=== PATIENT | female | born 1980 | race Caucasian/White ===

== ENCOUNTER 2017-08-20 21:40 | Emergency (ER) | payer OTHER, MEDICAID ==
[~2017-08-20] VITALS: Ht 170.2 cm; Wt 81.7 kg
[~2017-08-20 21:40] MED LIST: ACETAMINOPHEN-1 EAC1 PO; AFRIN15 ML NS; AMOXICILLIN 50500 MG PO; BACTRIM DS TAB1 EACH PO; BENADRYL25 MG PO; CHERATUSSIN DA480 ML PO; FLEXERIL PO; HYDROCODON-ACE1 EAC7; HYDROCODONE-AP1 EAC6 PO; HYDROCODONE-APA1 TA1 PO; IBUPROFEN 600600 M1 PO; IBUPROFEN 800800 M1; LEVAQUIN 750 M750 MG PO; LOTRIMIN30 GM TP; MOBIC7.5 M1 PO; MOBIC7.5 MG PO; MOTRIN 600 MG600 M1 PO; NOHOMEMEDICATIONS; NORCO 5-325 TA1 EACH PO; PENICILLIN V P500 MG PO; PENICILLIN VK250 MG PO; PREDNISONE 20 M20 M1 PO; PREDNISONE50 MG PO; ROBAXIN500 MG PO; TRIAMCINOLONE A80 G2 TOP; ULTRAM 50MG TAB50 MG PO; VENTOLIN HFA 1818 GM INH; VISTARIL 25 MG25 M1 PO; WATER PILL; ZPAK PO
[2017-08-20 21:46] VITALS: BP 117/83
[2017-08-20] MEDS ORDERED: NASONEX17 GM NASAL (22:00)
[2017-08-20] MEDS ORDERED: TRAMADOL 50 MG50 MG PO (22:00)
[2017-08-20] MEDS ORDERED: PROAIR HFA8.5 GM INH (22:00)
== END 2017-08-20 22:11 | disposition home or self-care (01) ==
LOC: M.ERS 21:40
DX: J06.9 Acute upper respiratory infection, unspecified (principal); Z85.41 Personal history of malignant neoplasm of cervix uteri; Z98.890 Other specified postprocedural states; F17.210 Nicotine dependence, cigarettes, uncomplicated

== ENCOUNTER 2017-10-10 21:51 | Emergency (ER) | payer OTHER, MEDICAID ==
[~2017-10-10] VITALS: Ht 170.2 cm; Wt 81.7 kg
[~2017-10-10 21:51] MED LIST changes: +NASONEX17 GM NASAL; +PROAIR HFA8.5 GM INH; +TRAMADOL 50 MG50 MG PO
[2017-10-10 22:47] LABS: URINE BILIRUBIN NEGATIVE (Negative); URINE BLOOD 3+ (Negative); URINE CLARITY CLEAR; URINE COLOR YELLOW; URINE GLUCOSE-RANDOM NEGATIVE (Negative); URINE KETONES NEGATIVE (Negative); URINE LEUKOCYTES NEGATIVE (Negative); URINE NITRITE NEGATIVE (Negative); URINE PROTEIN NEGATIVE (Negative); URINE SPECIFIC GRAVITY >= 1.030 (1.005-1.030); URINE UROBILINOGEN 0.2 E.U./dl (0.2-1.0)
[2017-10-10 22:54] LABS: ABSOLUTE BASOPHILS 0.1 thou/uL (0.0-0.2); ABSOLUTE EOSINOPHILS 0.3 thou/uL (0.0-0.7); ABSOLUTE LYMPHOCYTES 4.6 thou/uL (0.8-5.3); ABSOLUTE MONOCYTES 0.6 thou/uL (0.0-1.2); ABSOLUTE NEUTROPHILS 5.9 thou/uL (1.6-8.1); BASOPHILS 1.1 %; EOSINOPHILS 2.2 %; HEMATOCRIT 37.1 % (37.0-47.0); HEMOGLOBIN 12.6 gm/dL (12.0-15.0); LYMPHOCYTES 39.6 %; MCH 31.4 pg (26.0-34.0); MCHC 33.9 g/dL (28.0-37.0); MCV 92.7 fL (80.0-100.0); MONOCYTES 5.6 %; MPV 7.7 fl. (7.2-11.1); NUCLEATED RBCS 0 /100WBC; PLATELET COUNT* 292 thou/uL (150-400); POLYS 51.5 %; RDW-CV 12.5 % (10.5-14.5); WBC 11.5 thou/uL (4.0-11.0)
[2017-10-10 22:57] LABS: CASTS None Seen /LPF (None Seen); CRYSTALS None Seen /LPF (None Seen); MUCUS 0-3 Light strn/LPF (None Seen); SQUAMOUS >10 Many /LPF (0-3)
[2017-10-10 22:58] LABS: BACTERIA 1-9 Few /HPF (None Seen); URINE RBC 3-10 Few /HPF (0-2); URINE WBC 0-5 Rare /HPF (0-5)
[2017-10-10 22:59] LABS: CALCIUM 8.2 mg/dL (8.5-10.1); CREATININE 0.7 mg/dL (0.6-1.3); POTASSIUM 3.6 mmol/L (3.5-5.1)
[2017-10-10 23:03] LABS: ALBUMIN 3.6 g/dL (3.4-5.0); TOTAL BILIRUBIN 0.2 mg/dL (<0.1-1.0); TOTAL PROTEIN 7.2 g/dL (6.4-8.2)
[2017-10-11] MEDS ORDERED: ONDANSETRON HCL4 M2 PO (00:22)
[2017-10-11] MEDS ORDERED: NORCO 5-325 TA1 EACH PO (00:22)
[2017-10-11] MEDS ORDERED: NABUMETONE 750750 M1 PO (00:22)
[2017-10-11 00:40] VITALS: BP 122/71
== END 2017-10-11 00:43 | disposition home or self-care (01) ==
LOC: M.ERS 21:51
PROVIDERS: Nurse Practitioner Family
DX: K80.20 Calculus of gallbladder without cholecystitis without obstruction (principal); M48.00 Spinal stenosis, site unspecified; R11.2 Nausea with vomiting, unspecified; F17.210 Nicotine dependence, cigarettes, uncomplicated; Z85.41 Personal history of malignant neoplasm of cervix uteri; Z98.890 Other specified postprocedural states

== ENCOUNTER 2018-03-22 21:36 | Inpatient (IN) | payer OTHER, MEDICAID ==
[~2018-03-22] VITALS: Ht 167.6 cm; Wt 92.5 kg
--- NOTE | ~2018-03-22 | OP ---
[address] [address] OPERATIVE REPORT Name: PATY JORDAN Room: [address]#: [id number] Admission: 03/22/18 Attend Phys: Tony Barrett, Discharge: 03/25/18 Date of : 78 Report #: [id number] THIS REPORT FOR: //name// CC: ANDRY NGUYEN Physician staff Tony Barrett DICTATED BY: Bret Fox DO DATE OF SERVICE: 03/24/2018 INDICATIONS: The patient is a pleasant 38-year-old female with known cholelithiasis. She presented to the Emergency Department with chief complaint of increasing abdominal pain, nausea, vomiting. The pain was located in the right upper quadrant and having persistent nausea and vomiting after every meal, worse with fatty meals. It has been ongoing since September. The patient was found to have distended gallbladder with prominently full of stones on ultrasound and CT abdomen and pelvis. The patient subsequently recommended for laparoscopic cholecystectomy. She agreed to proceed with surgery. Full discussion of procedure, alternatives, risks, possible complications to include, but not limited to bleeding, infection, postoperative pain, scarring, hernia, conversion to open procedure, injury to other abdominal organs and mainly stomach, bowel, liver, bile ducts, biloma, bile leak, need for further surgery or transfer to a tertiary care facility and anesthesia risks. The patient voiced understanding of the risks and agreed to proceed to the operating room. PREOPERATIVE DIAGNOSIS: Symptomatic cholelithiasis. POSTOPERATIVE DIAGNOSES: Acute on chronic cholecystitis with cholelithiasis. PROCEDURE: Cyril Ornelas DO. CO-SURGEONS: Bret Fox DO, PGY-2. ELECTRONIC SYSTEMS TECHNICIAN: MCKAYLA Kruger. OPERATION PERFORMED: Laparoscopic cholecystectomy. ANESTHESIA: General and local. ESTIMATED BLOOD LOSS: 20 mL. SPECIMEN REMOVED: Gallbladder. COMPLICATIONS: [place] [address] OPERATIVE REPORT Name: PATY JORDAN Room: [address]#: [id number] Admission: 03/22/18 Attend Phys: Tony Barrett, Discharge: 03/25/18 Date of : 78 Report #: [id number] OPERATIVE TECHNIQUE: The patient was again seen and examined in the preop holding area. Two grams of Ancef were given as preop antibiotics. Fully informed written consent was obtained again full discussion of procedure, alternatives, risks and possible complications. The patient again voiced understanding and agreed to proceed to the operating room. The patient was then transported to the operating room suite and placed on the operating table in supine position. At this time, Anesthesia induced general anesthesia and endotracheal intubation. Footboard was placed at the patient's feet, bilateral lower extremity SCDs were placed in bilateral calves. Grounding pad was placed in right lateral thigh. All the patient extremities were padded and protected. The patient was prepped and draped using standard sterile fashion. Time-out was performed prior to onset of procedure. I began by making a vertical incision inferior to the umbilicus. Using open Stephany technique, dissected down through subcutaneous tissue to reach the level of fascia. Fascia was scored, grasped with bilateral Kochers and elevated. The fascia was then transected using electrocautery. A hemostat was used to valdes the peritoneum. At this time, two 0 Vicryl tglkph-ap-gncal interrupted sutures were placed at the apices of the fascial incision. A 5 mm Stephany trocar was then placed into the abdomen. Abdomen was insufflated first using low flow then high flow. A 5 mm 0 degree laparoscopic camera was placed in the abdomen. There was noted to be no injury to abdominal organs on entry into the abdomen. The patient was placed in reverse Trendelenburg left side down. An additional 5 mm trocar was placed in the epigastric region. At this time, the camera was then placed to the epigastric 5 mm trocar noting there to be dense adhesions of omentum around the umbilical port. Lysis of adhesion was then performed after two additional 5 mm trocars were placed in the right upper quadrant. Next, the gallbladder was grasped and elevated using locking wavy grasper. There was dense fibrous tissue surrounding gallbladder with transverse colon up against the distal aspect of the gallbladder. Using a blunt electrocautery, the adhesions were taken down. Transverse colon gently swept caudally. Next, once the level of Laura's pouch was reached, Laura's pouch was grasped with a blunt dissector and elevated. Cystic duct and artery were dissected using [place] grasper. Critical view of safety was obtained prior to using Hem-O-Elizabeth clips x 2, distal cystic duct, once proximally and then once distally and proximally on the cystic artery. Cystic duct and artery were then transected using laparoscopic scissors. I began to dissect the gallbladder off the liver bed and gallbladder fossa and encountered an additional posterior artery coursing into the posterior aspect of the gallbladder. This was dissected circumferentially and clipped with a Hem-O-Elizabeth clip. There was noted to be slight blood loss prior to clipping this artery. Laparoscopic suction was brought in the field for this reason as well as a blunt dissector had placed a hole and there was a small bile leak of contents. Hemostasis was achieved with clipping and electrocautery and dissection was completed of the gallbladder off of the liver bed fossa using electrocautery. Gallbladder was placed into a 5 mm EndoCatch bag through the umbilical trocar. Abdomen [place] [address] OPERATIVE REPORT Name: PATY JORDAN Cyndie Room: [address]#: [id number] Admission: 03/22/18 Attend Phys: Tony Barrett, Discharge: 03/25/18 Date of : 78 Report #: [id number] with 1 liter of saline. There was noted to be no ongoing hemorrhaging from the gallbladder fossa. Clips were visualized and in place. There was no bile leak or additional hemorrhage, hemostasis had been achieved. Abdomen was desufflated under direct visualization, 5 mm trocars were removed. Epigastric 5 mm trocar was then removed. Abdomen was fully desufflated. The Stephany trocar was removed from the umbilicus and the gallbladder was then brought through the umbilical incision. Of note, the fascial defect had to be extended caudally in order to remove the distended gallbladder that was packed full of varying size stones, small to large. Fascia was then closed using an additional 4-0 Vicryl interrupted jvzboh-gj-zjmaf sutures using a layered closure. A 3-0 Vicryl was used to close subcutaneous deep dermal layers, 4-0 Monocryl was used to close the skin in a running fashion. The additional 5 mm trocars were closed using 4-0 Monocryl interrupted sutures. The abdomen was cleansed using wet and dry lap. Sterile dressing was applied, Mastisol, Steri-Strips, Tegaderms 4 x 4s and Medipore tape. The patient tolerated the procedure well and was extubated in the OR. A 30 mL of 1% lidocaine was used for local anesthetic at the incision sites. The patient was extubated in the OR, transferred to PACU in stable condition after a brief recovery from Anesthesia will be transferred back to the floor and pending tolerates diet, pain controlled with p.o. meds and ambulates, surgically cleared for discharge later today, will followup with Dr. Ornelas in one week in the office. By: 1200 [id number] Butch Ornelas DO /nt
[~2018-03-22 21:36] MED LIST changes: +NABUMETONE 750750 M1 PO; +ONDANSETRON HCL4 M2 PO
[2018-03-22 21:45] VITALS: BP 132/78
[2018-03-22] MEDS ORDERED: APPLE CIDER VI300 MG PO (21:50)
[2018-03-22 22:05] LABS: URINE BILIRUBIN NEGATIVE (Negative); URINE BLOOD 2+ (Negative); URINE CLARITY CLEAR; URINE COLOR YELLOW; URINE GLUCOSE-RANDOM NEGATIVE (Negative); URINE KETONES NEGATIVE (Negative); URINE LEUKOCYTES-REFLEX NEGATIVE (Negative); URINE NITRITE-REFLEX NEGATIVE (Negative); URINE PROTEIN NEGATIVE (Negative); URINE SPECIFIC GRAVITY >= 1.030 (1.005-1.030); URINE UROBILINOGEN 0.2 E.U./dl (0.2-1.0)
[2018-03-22 22:08] LABS: ABSOLUTE BASOPHILS 0.1 thou/uL (0.0-0.2); ABSOLUTE EOSINOPHILS 0.4 thou/uL (0.0-0.7); ABSOLUTE LYMPHOCYTES 4.3 thou/uL (0.8-5.3); ABSOLUTE MONOCYTES 0.6 thou/uL (0.0-1.2); ABSOLUTE NEUTROPHILS 6.8 thou/uL (1.6-8.1); BASOPHILS 0.7 %; EOSINOPHILS 3.3 %; HEMATOCRIT 38.3 % (37.0-47.0); HEMOGLOBIN 12.9 gm/dL (12.0-15.0); LYMPHOCYTES 35.4 %; MCH 31.5 pg (26.0-34.0); MCHC 33.6 g/dL (28.0-37.0); MCV 93.8 fL (80.0-100.0); MONOCYTES 4.9 %; MPV 7.6 fl. (7.2-11.1); NUCLEATED RBCS 0 /100WBC; PLATELET COUNT* 273 thou/uL (150-400); POLYS 55.7 %; RBC 4.09 mil/uL (4.20-5.00); RDW-CV 13.1 % (10.5-14.5); WBC 12.2 thou/uL (4.0-11.0)
[2018-03-22 22:16] LABS: CALCIUM 8.8 mg/dL (8.5-10.1); CREATININE 0.8 mg/dL (0.6-1.3); POTASSIUM 3.6 mmol/L (3.5-5.1)
[2018-03-22 22:18] LABS: BACTERIA-REFLEX None Seen /HPF (None Seen); CASTS None Seen /LPF (None Seen); CRYSTALS None Seen /LPF (None Seen); SQUAMOUS 4-10 Moderate /LPF (0-3); URINE RBC None Seen /HPF (0-2); URINE WBC-REFLEX None Seen /HPF (0-5)
[2018-03-22 22:21] LABS: ALBUMIN 3.4 g/dL (3.4-5.0); TOTAL BILIRUBIN 0.1 mg/dL (<0.1-1.0)
[2018-03-22 23:54] VITALS: BP 109/65
[2018-03-23 00:25] VITALS: BP 137/85
[2018-03-23 04:15] VITALS: BP 103/67
[2018-03-23 08:30] VITALS: BP 94/59
[2018-03-23 11:12] LABS: CHOLESTEROL 191 mg/dL (<200); HDL CHOLESTEROL 33 mg/dL (>40); LDL CHOLESTEROL 129 mg/dL (<100); TC:HDL 5.8 Ratio (Not establshd); TRIGLYCERIDE 147 mg/dL (<150); VLDL 29 mg/dL (<40)
[2018-03-23 11:22] LABS: SERUM ASSESSMENT Clear
--- NOTE | 2018-03-23 12:26 | EKG ---
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 : 1980 Requested By: Nely Lee Order Number: [id number] Reading MD: Alexandr Love Measurements Intervals [place] Rate: 62 P: 26 OK: 143 QRS: 43 QRSD: 95 T: 38 QT: 395 QTc: 401 Interpretive Statements Sinus rhythm No previous ECG available for comparison Electronically Signed On 03-23-2018 12:26:36 [employer]ERGL[employer] PIPE COVERING SUPERVISOR by Alexandr Love [email or web address] <ELECTRONICALLY SIGNED> By: Alexandr Love MD, [facility] 03/23/18 1226 0809 8 Alexandr Love MD, FACC /EPI
[2018-03-23 17:01] VITALS: BP 99/61
[2018-03-23 19:23] VITALS: BP 102/66
[2018-03-23 23:06] LABS: GLYCOHEMOGLOBIN (HGB A1C) 5.5 % (4.8-5.6)
[2018-03-24] VITALS (7 sets, daily range): BP systolic 102–147; BP diastolic 49–63
[2018-03-24 04:40] LABS: HEMOGLOBIN 12.7 gm/dL (12.0-15.0); MCH 31.6 pg (26.0-34.0); MCHC 33.3 g/dL (28.0-37.0); MCV 94.7 fL (80.0-100.0); RBC 4.01 mil/uL (4.20-5.00); RDW-CV 12.8 % (10.5-14.5); WBC 10.2 thou/uL (4.0-11.0)
[2018-03-24 04:56] LABS: ALBUMIN 3.3 g/dL (3.4-5.0); CALCIUM 8.7 mg/dL (8.5-10.1); CREATININE 0.8 mg/dL (0.6-1.3); MAGNESIUM 1.9 mg/dL (1.8-2.4); POTASSIUM 4.2 mmol/L (3.5-5.1); TOTAL BILIRUBIN 0.7 mg/dL (<0.1-1.0)
[2018-03-25 00:25] VITALS: BP 100/60
[2018-03-25 04:00] VITALS: BP 91/53
[2018-03-25 08:00] VITALS: BP 99/55
[2018-03-25 10:29] VITALS: BP 99/55
[2018-03-25] MEDS ORDERED: NORCO 5-325 TA1 EACH PO (10:41)
[2018-03-25 11:15] VITALS: BP 99/55
--- NOTE | 2018-03-31 16:06 | PATH ---
[address] [address] PATHOLOGY RPT PROCEDURE Name: PATY JORDAN Room: [address]#: [id number] Admission: 03/22/18 Date of : 78 Discharge: 03/25/18 Report #: [id number] Path Case #: [id number] [facility] Accession Number: [id number] . 01 Material submitted: . GALLBLADDER . 01 Clinical history: . Cholecystitis . 02 Diagnosis: Gallbladder "gallbladder cholecystectomy": - Moderate chronic cholecystitis with cholelithiasis. ([facility] 03/26/2018) QTP/03/26/2018 . 02 Electronically signed: . Tonio Ruiz MD, Pathologist NPI- [id number] . 01 Gross description: . Received in formalin labeled "Stathas, Paty, gallbladder," is an intact gallbladder measuring 7.4 x 3.7 x 2.3 cm in greatest dimensions. The serosal surface is smooth to shaggy and yellow-green in appearance. Opening the specimen reveals a stone-packed interior lined with smooth to shaggy, light green-baig to dark green mucosa measuring 0.1 cm in thickness with a gallbladder wall thickness of up to 0.4 cm. The mucosal surface is pockmarked with gallstone imprints. No polyps or nodules are noted grossly. Calculi are present that are multifaceted and yellow-black in appearance, ranging from 0.9 to 1.7 cm in maximum dimension. Hot Knife Foxing Cutter sections of the infundibulum, body and fundus are submitted in cassette A1. (DAC; 03/25/2018) XDC/XDC . 02 Pathologist provided ICD-10: K80.10 . 02 CPT . 026045 Specimen Comment: A courtesy copy of this report has been sent to Specimen Comment: [phone], , . Specimen Comment: Report sent to DR HERBERT / DR LIU Specimen Comment: A duplicate report has been generated due to demographic updates. Performed at: [address] [facility], [place], [place] [id number] [place] [address] PATHOLOGY RPT PROCEDURE Name: PATY JORDAN Room: [address] IN M..#: [id number] Admission: 03/22/18 Date of : 78 Discharge: 03/25/18 Report #: [id number] Path Case #: [id number] MD James Mcginnis MD Phone: [phone] Performed at: 02 [facility] [address], [place], [place] [id number] MD Zachery Edward MD Phone: [phone]
== END 2018-03-25 11:15 | disposition home or self-care (01) | DRG 418 ==
LOC: M.ERS 21:36 → M.ORTHSURG 23:20 → M.TBA-ER 23:20 → M.ORTHSURG 23:53
PROVIDERS: Internal Medicine; Nurse Practitioner Family; ADMIT Family Medicine
PROC: 0FT44ZZ Resection of Gallbladder, Percutaneous Endoscopic Approach (ICD-10-PCS; principal; 2018-03-24)
DX: K80.12 Calculus of gallbladder with acute and chronic cholecystitis without obstruction (principal); R65.10 Systemic inflammatory response syndrome (SIRS) of non-infectious origin without acute organ dysfunction; F17.210 Nicotine dependence, cigarettes, uncomplicated; K76.0 Fatty (change of) liver, not elsewhere classified; Z98.891 History of uterine scar from previous surgery; Z85.41 Personal history of malignant neoplasm of cervix uteri; Z79.899 Other long term (current) drug therapy

== ENCOUNTER 2019-04-17 18:45 | Emergency (ER) | payer OTHER, MEDICAID ==
[~2019-04-17] VITALS: Ht 170.2 cm; Wt 90.7 kg
[~2019-04-17 18:45] MED LIST changes: +APPLE CIDER VI300 MG PO
[2019-04-17 21:21] LABS: ABSOLUTE EOSINOPHILS 0.1 thou/uL (0.0-0.7); ABSOLUTE LYMPHOCYTES 1.7 thou/uL (0.8-5.3); ABSOLUTE MONOCYTES 0.4 thou/uL (0.0-1.2); BASOPHILS 0.4 %; EOSINOPHILS 0.7 %; HEMATOCRIT 38.6 % (37.0-47.0); HEMOGLOBIN 13.1 gm/dL (12.0-15.0); LYMPHOCYTES 18.3 %; MCH 31.9 pg (26.0-34.0); MCV 93.7 fL (80.0-100.0); MONOCYTES 4.2 %; MPV 7.6 fl. (7.2-11.1); NUCLEATED RBCS 0 /100WBC; PLATELET COUNT* 243 thou/uL (150-400); POLYS 76.4 %; RBC 4.12 mil/uL (4.20-5.00); RDW-CV 12.9 % (10.5-14.5); WBC 9.1 thou/uL (4.0-11.0)
[2019-04-17 21:31] LABS: CALCIUM 7.7 mg/dL (8.5-10.1); CREATININE 0.8 mg/dL (0.6-1.3); POTASSIUM 3.4 mmol/L (3.5-5.1)
[2019-04-17 21:35] LABS: ALBUMIN 3.4 g/dL (3.4-5.0); TOTAL BILIRUBIN 0.4 mg/dL (<0.1-1.0); TOTAL PROTEIN 7.2 g/dL (6.4-8.2)
[2019-04-17 23:21] LABS: URINE BILIRUBIN NEGATIVE (Negative); URINE BLOOD 2+ (Negative); URINE CLARITY CLEAR; URINE COLOR YELLOW; URINE GLUCOSE-RANDOM NEGATIVE (Negative); URINE KETONES NEGATIVE (Negative); URINE LEUKOCYTES-REFLEX NEGATIVE (Negative); URINE NITRITE-REFLEX NEGATIVE (Negative); URINE PROTEIN NEGATIVE (Negative); URINE SPECIFIC GRAVITY >= 1.030 (1.005-1.030); URINE UROBILINOGEN 0.2 E.U./dl (0.2-1.0)
[2019-04-17 23:30] LABS: BACTERIA-REFLEX >30 Many /HPF (None Seen); CRYSTALS None Seen /LPF (None Seen); FINE GRANULAR CASTS 0-3 Few /LPF (None Seen); MUCUS >6 Heavy strn/LPF (None Seen); SQUAMOUS 0-3 Few /LPF (0-3); TRANSITIONAL EPITHEL CELL 0-3 Few /LPF (None Seen); URINE WBC-REFLEX 6-15 Few /HPF (0-5); WBC CLUMPS Few (None Seen)
[2019-04-18] MEDS ORDERED: CIPROFLOXACIN500 M1 PO ×2 (00:07→00:09)
[2019-04-18] MEDS ORDERED: ZOFRAN ODT4 MG PO ×2 (00:07→00:09)
[2019-04-18 00:31] VITALS: BP 133/86
== END 2019-04-18 00:31 | disposition home or self-care (01) ==
LOC: M.ERS 18:45
PROVIDERS: Emergency Medicine
DX: N39.0 Urinary tract infection, site not specified (principal); R19.7 Diarrhea, unspecified; F17.210 Nicotine dependence, cigarettes, uncomplicated; Z98.890 Other specified postprocedural states; Z85.41 Personal history of malignant neoplasm of cervix uteri

== ENCOUNTER 2019-10-09 23:33 | Emergency (ER) | payer OTHER, MEDICAID ==
[~2019-10-09] VITALS: Ht 167.6 cm; Wt 81.7 kg
[~2019-10-09 23:33] MED LIST changes: +CIPROFLOXACIN500 M1 PO; +ZOFRAN ODT4 MG PO
[2019-10-10 00:18] LABS: URINE BILIRUBIN NEGATIVE (Negative); URINE BLOOD 1+ (Negative); URINE CLARITY CLEAR; URINE COLOR YELLOW; URINE GLUCOSE-RANDOM NEGATIVE (Negative); URINE KETONES NEGATIVE (Negative); URINE LEUKOCYTES-REFLEX NEGATIVE (Negative); URINE NITRITE-REFLEX NEGATIVE (Negative); URINE PROTEIN NEGATIVE (Negative); URINE SPECIFIC GRAVITY 1.025 (1.005-1.030); URINE UROBILINOGEN 0.2 E.U./dl (0.2-1.0)
[2019-10-10] MEDS ORDERED: MEDROLDOSEPACK PO (00:20)
[2019-10-10] MEDS ORDERED: DIAZEPAM 5 MG5 MG PO (00:20)
[2019-10-10] MEDS ORDERED: TORADOL 10 MG T10 MG PO (00:20)
[2019-10-10 00:42] VITALS: BP 132/88
[2019-10-10 00:48] LABS: CASTS None Seen /LPF (None Seen); MUCUS 0-3 Light strn/LPF (None Seen); SQUAMOUS >10 Many /LPF (0-3)
[2019-10-10 00:49] LABS: URINE WBC-REFLEX 0-5 Rare /HPF (0-5)
[2019-10-10 00:50] LABS: CRYSTALS None Seen /LPF (None Seen); URINE RBC 0-2 Rare /HPF (0-2)
== END 2019-10-10 00:43 | disposition home or self-care (01) ==
LOC: M.ERS 23:33
PROVIDERS: Personal Emergency Response Attendant
DX: S39.012A Strain of muscle, fascia and tendon of lower back, initial encounter (principal); F17.210 Nicotine dependence, cigarettes, uncomplicated; M48.061 Spinal stenosis, lumbar region without neurogenic claudication; Z98.890 Other specified postprocedural states; X50.1XXA Overexertion from prolonged static or awkward postures, initial encounter; Y93.89 Activity, other specified; Y92.69 Other specified industrial and construction area as the place of occurrence of the external cause; Y99.9 Unspecified external cause status

== ENCOUNTER 2020-05-26 22:39 | Emergency (ER) | payer OTHER, MEDICAID ==
[~2020-05-26] VITALS: Ht 170.2 cm; Wt 92.5 kg
[~2020-05-26 22:39] MED LIST changes: +DIAZEPAM 5 MG5 MG PO; +MEDROLDOSEPACK PO; +TORADOL 10 MG T10 MG PO
[2020-05-27] MEDS ORDERED: ACETAMINOPHEN-1 EAC2 PO (00:21)
[2020-05-27] MEDS ORDERED: PENICILLIN V P500 MG PO (00:21)
[2020-05-27 00:31] VITALS: BP 150/90
== END 2020-05-27 00:31 | disposition home or self-care (01) ==
LOC: M.ERS 22:39
DX: S02.5XXA Fracture of tooth (traumatic), initial encounter for closed fracture (principal); K04.7 Periapical abscess without sinus; F17.210 Nicotine dependence, cigarettes, uncomplicated; Z98.890 Other specified postprocedural states; Z85.41 Personal history of malignant neoplasm of cervix uteri; X58.XXXA Exposure to other specified factors, initial encounter; Y93.89 Activity, other specified; Y92.89 Other specified places as the place of occurrence of the external cause; Y99.8 Other external cause status

== ENCOUNTER 2020-10-04 01:51 | Emergency (ER) | payer OTHER, MEDICAID ==
[~2020-10-04] VITALS: Ht 170.2 cm; Wt 94.8 kg
[~2020-10-04 01:51] MED LIST changes: +ACETAMINOPHEN-1 EAC2 PO
[2020-10-04] MEDS ORDERED: ALLEGRA-D 24 H1 EACH PO (02:42)
[2020-10-04 04:09] VITALS: BP 123/84
== END 2020-10-04 04:11 | disposition home or self-care (01) ==
LOC: M.ERS 01:51
DX: J32.1 Chronic frontal sinusitis (principal); Z20.822 Contact with and (suspected) exposure to COVID-19; J32.0 Chronic maxillary sinusitis; F17.210 Nicotine dependence, cigarettes, uncomplicated; Z98.890 Other specified postprocedural states; Z85.41 Personal history of malignant neoplasm of cervix uteri